=== PATIENT | male | born 1950 | race African-American/Black ===

== ENCOUNTER 2016-04-19 10:21 | Emergency (ER) | payer MEDICARE, MEDICAID ==
[~2016-04-19] VITALS: Ht 170.2 cm; Wt 74.8 kg
[~2016-04-19 10:21] MED LIST: CYCL10TA2 PO
--- NOTE | 2016-04-19 10:57 | EKG ---
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
[2016-04-19] MEDS ORDERED: IV NORMAL SALINE 1000ML BAG 1,000 ML IV ONE (11:00)
[2016-04-19] MEDS ORDERED: ONDANSETRON PF 4 MG/2 ML VIAL. IV ONE (11:00)
[2016-04-19] MEDS ORDERED: ACETAMINOPHEN 500 MG TABLET PO ONE (11:00)
[2016-04-19 11:02] LABS: BASO # 0.1 x10^3/uL (0.0-0.2); BASO % 1 % (0-3); EOS % 1 % (0-3); HEMOGLOBIN 15.2 g/dL (13.0-17.5); LYMPH # 0.5 x10^3/uL (1.0-4.8); LYMPH % 7 % (24-48); MEAN CORPUSCULAR HEMOGLOBIN 30 pg (25-35); MEAN CORPUSCULAR HGB CONC 35 g/dL (31-37); MEAN CORPUSCULAR VOLUME 87 fL (79-100); MONO % 12 % (0-9); NEUT % 79 % (31-73); PLATELET COUNT 215 x10^3/uL (140-400); RED BLOOD COUNT 5.06 x10^6/uL (4.30-5.70); WHITE BLOOD COUNT 6.7 x10^3/uL (4.0-11.0)
[2016-04-19 11:06] LABS: CALCIUM 8.3 mg/dL (8.5-10.1); CREATININE 1.5 mg/dL (0.7-1.3); GFR 56.8; POTASSIUM 3.5 mmol/L (3.5-5.1)
--- NOTE | 2016-04-19 11:18 | RAD ---
Exam performed: One view chest. Indication: productive cough, fever Date of Service: 04/19/2016 12:49 PM Comparison: None available. Single AP upright portable view chest findings: Cardiomediastinal silhouette is within limits of normal. No acute infiltrates, effusion or pneumothorax is detected. The bony structures are normal. Impression: No acute cardiopulmonary process is detected.
[2016-04-19 11:36] LABS: OBC FLU VALID
[2016-04-19 13:00] VITALS: BP 117/70
--- NOTE | 2016-04-19 13:36 | PHYS DOC ---
Past Medical History Past Medical History: No Pertinent History Past Surgical History: No Surgical History Smoking: Cigarettes Alcohol Use: Heavy Drug Use: None Adult General Chief Complaint Chief Complaint: SHORTNESS OF BREATH HPI HPI Patient is a 65 year old male who presents with family for concern of flulike illness for the past 1-2 weeks. He has had fatigue, nausea, cough with blood- streaked sputum, nasal congestion, rhinorrhea, chills and fever, lightheadedness , decreased oral intake, and mild gradual onset headache. He has been sleeping in bed for most of the day. He has been able to ambulate to the restroom. Family notes he has been coughing for the past few months as well that has been dry. He is a smoker and has no formal diagnosis of COPD as he does not see doctors as an outpatient. He denies chest pain, abdominal pain, diarrhea, dysuria, vision changes, numbness, tingling, weakness, dizziness. He denies travel, incarceration, or IV drug abuse. Review of Systems Review of Systems Constitutional: Has fever and chills [] Eyes: Denies change in visual acuity, redness, or eye pain [] HENT: Has nasal congestion. Denies sore throat [] Respiratory: Has cough. Denies shortness of breath [] Cardiovascular: No additional information not addressed in HPI [] GI: Denies abdominal pain, vomiting, bloody stools or diarrhea [] : Denies dysuria or hematuria [] Musculoskeletal: Denies back pain or joint pain [] Integument: Denies rash or skin lesions [] Neurologic: Denies focal weakness or sensory changes [] Endocrine: Denies polyuria or polydipsia [] Current Medications Current Medications Current Medications Medications (Trade) Dose Ordered Sig/[facility] Start Time Stop Time Status Last Admin Dose Admin Acetaminophen (Tylenol) 500 mg 1X ONCE 04/19/16 11:00 04/19/16 11:01 DC 04/19/16 11:05 500 MG Ondansetron HCl 4 mg 4 mg 1X ONCE 04/19/16 11:00 04/19/16 11:01 DC 04/19/16 11:05 4 MG Sodium Chloride (Iv Sodium Chloride 0.9% 1000ml Bag) 1,000 ml @ 1,000 mls/hr 1X ONCE 04/19/16 11:00 04/19/16 11:59 DC 04/19/16 11:05 1,000 MLS/HR Allergies Allergies Allergies Coded Allergies Type Severity Reaction Last Updated Verified No Known Drug Allergies 12/07/15 No Physical Exam Physical Exam Constitutional: Well developed, well nourished, no acute distress, non-toxic appearance. [] HENT: Normocephalic, atraumatic, bilateral external ears normal, oropharynx moist, no oral exudates, nose normal. [] Eyes: PERRLA, EOMI, conjunctiva normal, no discharge. [] Neck: Normal range of motion, no tenderness, supple, no stridor. [] Cardiovascular:Heart rate regular rhythm [] Lungs & Thorax: Bilateral breath sounds clear to auscultation [] Abdomen: Bowel sounds normal, soft, no tenderness. [] Skin: Warm, dry, no erythema, no rash. [] Back: No tenderness, no CVA tenderness. [] Extremities: No tenderness, ROM intact, no edema, no palpable cord. [] Neurologic: Alert and oriented X 3, normal motor function, normal sensory function, no focal deficits noted. [] Psychologic: Affect normal, judgement normal, mood normal. [] Current Patient Data Vital Signs Vital Signs Date Time Temp Pulse Resp B/P Pulse Ox O2 Delivery O2 Flow Rate FiO2 04/19/16 13:00 84 20 117/70 94 Room Air 04/19/16 10:25 101.7 101.7 Lab Values Laboratory Tests Test 04/19/16 10:42 04/19/16 11:00 White Blood Count 6.7x10^3/uL (4.0-11.0) Red Blood Count 5.06x10^6/uL (4.30-5.70) Hemoglobin 15.2g/dL (13.0-17.5) Hematocrit 44.0% (39.0-53.0) Mean Corpuscular Volume 87fL (79-100) Mean Corpuscular Hemoglobin 30pg (25-35) Mean Corpuscular Hemoglobin Concent 35g/dL (31-37) Red Cell Distribution Width 14.0% (11.5-14.5) Platelet Count 215x10^3/uL (140-400) Neutrophils (%) (Auto) 79% (31-73) H Lymphocytes (%) (Auto) 7% (24-48) L Monocytes (%) (Auto) 12% (0-9) H Eosinophils (%) (Auto) 1% (0-3) Basophils (%) (Auto) 1% (0-3) Neutrophils # (Auto) 5.3x10^3uL (1.8-7.7) Lymphocytes # (Auto) 0.5x10^3/uL (1.0-4.8) L Monocytes # (Auto) 0.8x10^3/uL (0.0-1.1) Eosinophils # (Auto) 0.0x10^3/uL (0.0-0.7) Basophils # (Auto) 0.1x10^3/uL (0.0-0.2) Sodium Level 133mmol/L (136-145) L Potassium Level 3.5mmol/L (3.5-5.1) Chloride Level 99mmol/L (98-107) Carbon Dioxide Level 27mmol/L (21-32) Anion Gap 7 (6-14) Blood Urea Nitrogen 12mg/dL (8-26) Creatinine 1.5mg/dL (0.7-1.3) H Estimated GFR (Cockcroft-Gault) 56.8 Glucose Level 134mg/dL (70-99) H Calcium Level 8.3mg/dL (8.5-10.1) L Influenza Type A Antigen Positive (NEGATIVE) Influenza Type B Antigen Negative (NEGATIVE) Laboratory Tests 04/19/16 10:42 Laboratory Tests 04/19/16 10:42 EKG EKG EKG as interpreted by me is sinus tachycardic, rate 110, no ST-T changes, normal intervals, no ectopy Radiology/Procedures Radiology/Procedures Chest xray as interpreted by me with no acute cardiopulmonary disease process Course & Med Decision Making Course & Med Decision Making Pertinent Labs and Imaging studies reviewed. (See chart for details) He is influenza A positive, but otherwise his workup is unremarkable. He is feeling better after medications and is ambulatory in the department with steady gait. O2 sat is 91% or better while walking. He would like to go home and continue supportive therapy. I encouraged him to follow-up with his primary care doctor. Smoking cessation discussed. Return precautions given. He and family understand and agree with plan. Dragon Disclaimer Dragon Disclaimer This electronic medical record was generated, in whole or in part, using a voice recognition dictation system. Departure Departure Impression: Primary Impression: Influenza A Disposition: 01 HOME, SELF-CARE Condition: STABLE Referrals: NO PCP (PCP) Patient Instructions: Influenza, Adult, [id number] Additional Instructions: Take tylenol or ibuprofen as needed for pain or fever. Drink fluids to stay hydrated. Follow up with your primary care doctor within 1 week. Return for any concerns. Philippe TUTTLE MD Apr 19, 2016 13:36
== END 2016-04-19 13:47 | disposition home or self-care (01) ==
LOC: ER 10:21
DX: J09.X2 Influenza due to identified novel influenza A virus with other respiratory manifestations (principal)
CPT/HCPCS: 36415; 71010; 80048; 85027; 87804; 93005; 96361; 96374; 99285; J2405; J7030